=== PATIENT | female | born 1995 | race African-American/Black ===

== ENCOUNTER 2019-11-22 00:38 | Emergency (ER) | payer MEDICAID ==
[2019-11-22 01:00] LABS: APPEARANCE,URINE Cloudy (CLEAR); BILIRUBIN,URINE Negative (NEGATIVE); COLOR,URINE Dark Yellow (YELLOW); GLUCOSE, URINE (UA) Negative (NEGATIVE); KETONES,URINE >=160 mg/dL (NEGATIVE); LEUKOCYTE ESTERASE ,URINE Trace (NEGATIVE); NITRATE,URINE Negative (NEGATIVE); OCCULT BLOOD,URINE Negative (NEGATIVE); PH,URINE 7.5 (5.0-8.0); PROTEIN,URINE POS 1+ mg/dL (NEGATIVE)
[2019-11-22 01:02] LABS: HCG,QUAL RESULT POSITIVE (NEGATIVE)
[2019-11-22 01:08] LABS: BACTERIA,URINE Few /HPF (None Seen); MUCUS,URINE Rare LPF (None Seen); RBC,URINE None Seen /HPF (0-1); SQUAMOUS EPITHELIAL CELL,UR Few /HPF (0-2); WBC,URINE 0-1 /HPF (0-1)
[2019-11-22] MEDS ORDERED: DEXTROSE 5%-LACTATED RINGERS 1,000 ML IV ONE (01:19)
[2019-11-22] MEDS ORDERED: METOCLOPRAMIDE 10 MG/2 ML VIAL ONE (01:19)
[2019-11-22] MEDS ORDERED: ONDANSETRON HCL 4 MG/2 ML VIAL ONE (01:19)
[2019-11-22 01:23] LABS: BASOPHILS % (AUTO) 0.2 % (0.0-5.0); HEMATOCRIT 42.2 % (36-48); LYMPHOCYTES % (AUTO) 14.2 % (21.0-51.0); MEAN CORPUSCULAR HEMOGLOBIN 30.6 pg (27.0-33.0); MEAN CORPUSCULAR HGB CONC 34.8 g/dL (32.0-36.0); MEAN CORPUSCULAR VOLUME 87.7 fL (79-99); MONOCYTES % (AUTO) 5.4 % (3.0-13.0); NEUTROPHILS % (AUTO) 79.7 % (40.0-77.0); PLATELET COUNT (AUTO) 260 K/uL (130-400); RED BLOOD CELL COUNT(AUTO) 4.81 MIL/uL (4.00-5.50); RED CELL DISTRIBUTION WIDTH 12.4 % (11.0-15.5); WHITE BLOOD COUNT (AUTO) 13.8 K/uL (4.8-10.8)
[2019-11-22 01:29] LABS: BILIRUBIN,TOTAL 2.2 mg/dL (0.2-1.0); CREATININE 0.6 mg/dL (0.5-1.5); POTASSIUM 3.6 mmol/L (3.5-5.1)
[2019-11-22 01:30] LABS: ALBUMIN 4.5 g/dL (3.5-5.0); TOTAL PROTEIN, SERUM 7.8 g/dL (6.0-8.3)
== END 2019-11-22 02:31 | disposition home or self-care (01) ==
LOC: EDH 00:38
DX: O21.0 Mild hyperemesis gravidarum (principal); O26.891 Other specified pregnancy related conditions, first trimester; E86.9 Volume depletion, unspecified; J45.909 Unspecified asthma, uncomplicated; Z98.890 Other specified postprocedural states; Z3A.01 Less than 8 weeks gestation of pregnancy
CPT/HCPCS: 36415; 80053; 81001; 81025; 85025; 96361; 96365; 96375; 99285; J2405; J2765; J3490

== ENCOUNTER 2020-06-24 16:31 | Observation (INO) | payer MEDICAID ==
[~2020-06-24] VITALS: Ht 160 cm; Wt 89.4 kg
[2020-06-24 17:35] LABS: BASOPHILS % (AUTO) 0.3 % (0.0-5.0); EOSINOPHILS % (AUTO) 0.1 % (0.0-8.0); HEMATOCRIT 32.7 % (36-48); LYMPHOCYTES % (AUTO) 14.6 % (21.0-51.0); MEAN CORPUSCULAR HEMOGLOBIN 28.5 pg (27.0-33.0); MEAN CORPUSCULAR HGB CONC 33.9 g/dL (32.0-36.0); MEAN CORPUSCULAR VOLUME 83.8 fL (79-99); MONOCYTES % (AUTO) 4.3 % (3.0-13.0); NEUTROPHILS % (AUTO) 78.8 % (40.0-77.0); PLATELET COUNT (AUTO) 248 K/uL (130-400); RED CELL DISTRIBUTION WIDTH 12.2 % (11.0-15.5); WHITE BLOOD COUNT (AUTO) 13.4 K/uL (4.8-10.8)
[2020-06-24 17:36] LABS: APPEARANCE,URINE Clear (CLEAR); BILIRUBIN,URINE Negative (NEGATIVE); COLOR,URINE Yellow (YELLOW); GLUCOSE, URINE (UA) 500 mg/dL (NEGATIVE); KETONES,URINE Trace mg/dL (NEGATIVE); LEUKOCYTE ESTERASE ,URINE Trace (NEGATIVE); NITRATE,URINE Negative (NEGATIVE); OCCULT BLOOD,URINE Negative (NEGATIVE); PH,URINE 6.5 (5.0-8.0); PROTEIN,URINE Negative (NEGATIVE)
[2020-06-24 17:48] LABS: INR 0.88 (0.85-1.15); PROTHROMBIN TIME 9.5 SEC (9.6-11.6)
[2020-06-24 17:49] LABS: CREATININE 0.6 mg/dL (0.5-1.5); POTASSIUM 3.3 mmol/L (3.5-5.1)
[2020-06-24 17:53] LABS: ALBUMIN 2.8 g/dL (3.5-5.0); BILIRUBIN,TOTAL 0.5 mg/dL (0.2-1.0); TOTAL PROTEIN, SERUM 6.8 g/dL (6.0-8.3); URIC ACID 3.9 mg/dL (2.6-7.2)
[2020-06-24 18:03] LABS: BACTERIA,URINE Moderate /HPF (None Seen)
[2020-06-24 18:04] LABS: MUCUS,URINE Moderate LPF (None Seen); SQUAMOUS EPITHELIAL CELL,UR Few /HPF (0-2)
[2020-06-24 18:39] VITALS: BP 112/69
[2020-06-24 20:05] VITALS: BP 133/74
--- NOTE | 2020-06-24 20:43 | NUR ---
diet is low sodium Addendum: 06/24/20 at 2042 by LAVERNE YANG RN RN Amended: Links added.
--- NOTE | 2020-06-24 21:16 | NUR ---
HYGIENE Patient provided with toothbrush, toothpaste, soap, body wash, towels. Informed patient she may shower when she is ready. Instructed to call for any needed assistance. Patient verbalizes understanding. Addendum: 06/24/20 at 2120 by LAVERNE YANG RN RN Amended: Links added.
[2020-06-24 23:14] VITALS: BP 133/69
[2020-06-25 04:14] VITALS: BP 126/74
--- NOTE | 2020-06-25 07:04 | NUR ---
Report Report given to Manda Mart RN
[2020-06-25 07:05] VITALS: BP 132/85
--- NOTE | 2020-06-25 07:46 | NUR ---
EFM started at 708, discontinued at 745 FHT - 150 contractions x2, no decelarations movements felt by pt reactive strip Addendum: 06/25/20 at 808 by DWAIN GONZALES RN Amended: Links added.
[2020-06-25] MEDS ORDERED: ACETAMINOPHEN 325 MG TAB PO PRN (09:00)
[2020-06-25] MEDS ORDERED: PROMETHAZINE HCL 25 MG/ML 1ML AMPULE IM PRN (09:00)
[2020-06-25 11:00] VITALS: BP 100/53
[2020-06-25 15:13] VITALS: BP 115/58
--- NOTE | 2020-06-25 17:30 | NUR ---
DC PLAN PATIENT LIVES WITH FAMILY. [address] [place] [place] [address]. PATIENT HAS NO SERVICES OR DME'S. PLAN IS TO RETURN HOME. Addendum: 06/25/20 at 1731 by DERICK GREGORY RN CM Amended: Links added.
[2020-06-25 18:17] LABS: CREATININE,SERUM FOR CRCL 0.6 mg/dL (0.6-1.3)
[2020-06-25 18:49] LABS: COLLECTION PERIOD,URINE 24 HR; TOTAL VOLUME 24HRS,URINE 1500 mL; TPROTEIN TIMED,URINE 15 mg/dL; TPROTEIN U,24HR CALC 225 mg/24HR (0-165)
--- NOTE | 2020-06-25 19:25 | NUR ---
pt is discharged in stable condition. verbal and written discharge instructions given, pls refer to [facility], informed to call the MD office tomorrow for follow up on mondayjun 29. no prescription given. informed to call the doctor for further concerns. pt voiced understanding to all things discussed. Addendum: 06/25/20 at 1932 by DWAIN GONZALES RN Amended: Links added.
--- NOTE | 2020-06-25 20:40 | NUR ---
STATUS DISCHARGED VIA W/C BY ENRIQUE JULES PCP, PT ALERT, ORIENTED, DENIES ANY CONCERNS, LEFT BY VEHICLE WITH SPOUSE Addendum: 06/26/20 at 0105 by MILENA MIKE LVN Amended: Links added.
[2020-06-26 07:17] LABS: HEPATITIS Bs ANTIGEN SCREEN P Negative (Negative)
== END 2020-06-25 20:40 | disposition home or self-care (01) ==
LOC: LDH 16:31 → WSH 18:45
PROVIDERS: ADMIT Obstetrics & Gynecology; ATTEND Obstetrics & Gynecology
DX: O14.93 Unspecified pre-eclampsia, third trimester (principal); Z3A.37 37 weeks gestation of pregnancy
CPT/HCPCS: 36415; 59025 ×2; 76819; 80053; 81001; 82575; 84156; 84550; 85025; 85384; 85610; 85730; 86592; 86701; 86850; 86900; 86901; 87088; 87340; 87390; 96360; 96361 ×2; 96372; G0378 ×10; J2550

== ENCOUNTER 2021-01-24 12:37 | Emergency (ER) | payer MEDICAID ==
[2021-01-24 13:10] LABS: BASOPHILS % (AUTO) 0.3 % (0.0-5.0); EOSINOPHILS % (AUTO) 1.7 % (0.0-8.0); HEMATOCRIT 40.3 % (36-48); LYMPHOCYTES % (AUTO) 38.3 % (21.0-51.0); MEAN CORPUSCULAR HEMOGLOBIN 26.9 pg (27.0-33.0); MEAN CORPUSCULAR HGB CONC 33.5 g/dL (32.0-36.0); MEAN CORPUSCULAR VOLUME 80.4 fL (79-99); MONOCYTES % (AUTO) 8.9 % (3.0-13.0); NEUTROPHILS % (AUTO) 50.1 % (40.0-77.0); PLATELET COUNT (AUTO) 287 K/uL (130-400); RED BLOOD CELL COUNT(AUTO) 5.01 MIL/uL (4.00-5.50); RED CELL DISTRIBUTION WIDTH 12.6 % (11.0-15.5); WHITE BLOOD COUNT (AUTO) 7.5 K/uL (4.8-10.8)
[2021-01-24] MEDS ORDERED: ONDANSETRON 4MG INJ ONE (13:15)
[2021-01-24] MEDS ORDERED: MORPHINE 4 MG SYG ONE (13:15)
[2021-01-24 13:21] LABS: CREATININE 0.6 mg/dL (0.5-1.5); POTASSIUM 3.6 mmol/L (3.5-5.1)
[2021-01-24 13:22] LABS: APPEARANCE,URINE Clear (CLEAR); BILIRUBIN,URINE Negative (NEGATIVE); COLOR,URINE Yellow (YELLOW); GLUCOSE, URINE (UA) Negative (NEGATIVE); KETONES,URINE Negative (NEGATIVE); LEUKOCYTE ESTERASE ,URINE Negative (NEGATIVE); NITRATE,URINE Negative (NEGATIVE); OCCULT BLOOD,URINE Moderate (NEGATIVE); PH,URINE 5.5 (5.0-8.0); PROTEIN,URINE Negative (NEGATIVE)
[2021-01-24 13:24] LABS: HCG,QUAL RESULT NEGATIVE (NEGATIVE)
[2021-01-24 13:32] LABS: ALBUMIN 3.5 g/dL (3.5-5.0); BILIRUBIN,TOTAL 0.3 mg/dL (0.2-1.0); TOTAL PROTEIN, SERUM 7.6 g/dL (6.0-8.3)
[2021-01-24 13:37] LABS: BACTERIA,URINE Moderate /HPF (None Seen)
[2021-01-24 13:38] LABS: SQUAMOUS EPITHELIAL CELL,UR Moderate /HPF (0-2)
== END 2021-01-24 18:53 | disposition home or self-care (01) ==
LOC: EDH 12:37
DX: N20.1 Calculus of ureter (principal); J45.909 Unspecified asthma, uncomplicated
CPT/HCPCS: 36415; 74176; 80053; 81001; 81025; 83690; 84702; 85025; 87088; 96374; 96375; 99285; J2270; J2405

== ENCOUNTER 2021-07-27 16:31 | Emergency (ER) | payer MEDICAID ==
[~2021-07-27] VITALS: Ht 162.6 cm; Wt 95.3 kg
[2021-07-27 16:32] VITALS: BP 133/84
[2021-07-27 16:33] VITALS: BP 133/84
== END 2021-07-27 18:20 | disposition left against medical advice (07) ==
LOC: EDH 16:31
DX: O90.89 Other complications of the puerperium, not elsewhere classified (principal); R10.30 Lower abdominal pain, unspecified; Z53.21 Procedure and treatment not carried out due to patient leaving prior to being seen by health care provider

== ENCOUNTER 2021-09-02 09:31 | Emergency (ER) | payer MEDICAID ==
[~2021-09-02] VITALS: Ht 162.6 cm; Wt 93.0 kg
[2021-09-02] MEDS ORDERED: LORAZEPAM 2 MG/ML 1 ML VIAL IVP ONE (10:00)
[2021-09-02] MEDS ORDERED: KETOROLAC 30MG VIAL (30MG/ML) IV ONE (10:00)
[2021-09-02] MEDS ORDERED: ONDANSETRON 4MG INJ IVP ONE (10:00)
[2021-09-02] MEDS ORDERED: 0.9%NACL 1000ML 1,000 ML IV ONE (10:00)
[2021-09-02 10:05] LABS: BASOPHILS % (AUTO) 0.2 % (0.0-5.0); EOSINOPHILS % (AUTO) 0.7 % (0.0-8.0); HEMATOCRIT 41.4 % (36-48); LYMPHOCYTES % (AUTO) 28.6 % (21.0-51.0); MEAN CORPUSCULAR HEMOGLOBIN 29.3 pg (27.0-33.0); MEAN CORPUSCULAR HGB CONC 34.3 g/dL (32.0-36.0); MEAN CORPUSCULAR VOLUME 85.5 fL (79-99); MONOCYTES % (AUTO) 6.8 % (3.0-13.0); PLATELET COUNT (AUTO) 273 K/uL (130-400); RED BLOOD CELL COUNT(AUTO) 4.84 MIL/uL (4.00-5.50); RED CELL DISTRIBUTION WIDTH 12.5 % (11.0-15.5); WHITE BLOOD COUNT (AUTO) 12.2 K/uL (4.8-10.8)
[2021-09-02 10:07] LABS: APPEARANCE,URINE Cloudy (CLEAR); BILIRUBIN,URINE Negative (NEGATIVE); COLOR,URINE Yellow (YELLOW); GLUCOSE, URINE (UA) Negative (NEGATIVE); KETONES,URINE Trace mg/dL (NEGATIVE); LEUKOCYTE ESTERASE ,URINE Small (NEGATIVE); NITRATE,URINE Negative (NEGATIVE); OCCULT BLOOD,URINE Large (NEGATIVE); PROTEIN,URINE POS 1+ mg/dL (NEGATIVE)
[2021-09-02 10:11] LABS: BACTERIA,URINE Rare /HPF (None Seen); MUCUS,URINE Few LPF (None Seen); RBC,URINE >100 /HPF (0-1); SQUAMOUS EPITHELIAL CELL,UR Few /HPF (0-2)
[2021-09-02 10:13] LABS: CREATININE 0.8 mg/dL (0.5-1.5); POTASSIUM 3.6 mmol/L (3.5-5.1)
[2021-09-02 10:17] LABS: BILIRUBIN,TOTAL 0.3 mg/dL (0.2-1.0); TOTAL PROTEIN, SERUM 7.7 g/dL (6.0-8.3)
[2021-09-02] MEDS ORDERED: TAMS-1 PO (13:00)
[2021-09-02] MEDS ORDERED: ONDA4TAB4 PO (13:00)
[2021-09-02] MEDS ORDERED: ACET1TAB25 PO (13:00)
[2021-09-02 13:15] VITALS: BP 118/67
== END 2021-09-02 13:16 | disposition home or self-care (01) ==
LOC: EDH 09:31
DX: N20.1 Calculus of ureter (principal); Z79.1 Long term (current) use of non-steroidal anti-inflammatories (NSAID); Z79.899 Other long term (current) drug therapy
CPT/HCPCS: 36415; 74176; 80053; 81001; 81025; 82150; 83690; 85025; 96361; 96374; 96375; 99284; J1885; J2060; J2405